=== PATIENT | female | born 1935 | race Caucasian/White ===

== ENCOUNTER 2019-05-15 | Emergency (ER) | payer MEDICARE ==
[~2019-05-15] MED LIST: AMOXICILLIN875 MG OR; BENZONATATE200 MG PO; CELEXA10 MG PO; DICLOFENAC75 MG PO; LEVOTHYROXIN112 MC1 PO; MISOPROSTOL PO; NAPROSYN500 MG PO; PRAVASTATIN40 MG PO; VERAPAMIL240 M3 PO; ZPAK PO
[2019-05-15] MEDS ORDERED: CEPHALEXIN500 M1 PO (11:01)
== END 2019-05-15 12:35 | disposition home or self-care (01) ==
PROC: 0HQKXZZ Repair Right Lower Leg Skin, External Approach (ICD-10-PCS; principal; 2019-05-15)
DX: S81.811A Laceration without foreign body, right lower leg, initial encounter (principal); I10 Essential (primary) hypertension; E03.9 Hypothyroidism, unspecified; X58.XXXA Exposure to other specified factors, initial encounter

== ENCOUNTER 2019-05-22 | Emergency (ER) | payer MEDICARE ==
[~2019-05-22] MED LIST changes: +CEPHALEXIN500 M1 PO
== END 2019-05-22 11:27 | disposition home or self-care (01) ==
DX: S91.011D Laceration without foreign body, right ankle, subsequent encounter (principal); X58.XXXD Exposure to other specified factors, subsequent encounter

== ENCOUNTER 2019-05-26 | Emergency (ER) | payer MEDICARE ==
[2019-05-26] MEDS ORDERED: CEPHALEXIN500 M1 PO (09:01)
== END 2019-05-26 09:33 | disposition home or self-care (01) ==
DX: S81.811D Laceration without foreign body, right lower leg, subsequent encounter (principal); X58.XXXD Exposure to other specified factors, subsequent encounter